=== PATIENT | female | born 1980 | race Caucasian/White ===

== ENCOUNTER 2024-04-21 09:13 | Inpatient (IN) ==
--- NOTE | 2024-03-17 10:51 | PAT Medication Instructions ---
Medication Instructions Date of Service March 17, 2024 Home Medications duloxetine 30 mg capsule,delayed release 30 mg PO QAM ibuprofen 200 mg tablet 200 mg PO Q6H PRN prn pregabalin 75 mg capsule (Lyrica) 75 mg PO BID ASK your surgeon for instructions ibuprofen 200 mg tablet 200 mg PO Q6H PRN prn Take morning of surgery With a small sip of water, OTHERWISE NOTHING TO EAT OR DRINK AFTER MIDNIGHT: duloxetine 30 mg capsule,delayed release 30 mg PO QAM pregabalin 75 mg capsule (Lyrica) 75 mg PO BID Take evening before surgery pregabalin 75 mg capsule (Lyrica) 75 mg PO BID Other Notes If you have any questions please call us at [phone] or [phone] or [phone] or [phone]
--- NOTE | 2024-03-22 11:27 | Anesthesiology Consultation ---
Date of Service March 22, 2024 Assessment & Plan (1) Encounter for pre-operative examination: - awaiting surgeon ordered PCP pre-operative evaluation 04/05/24 (Dr. Geraldine Leiva). Chart Review Chart Review: Pending: Refer to Additional Notes / Consult section and Patient seen in Pre Admission Testing Teaching & Discussion Pre-Anesthesia Teaching/Discussion Notes: Instructed NPO after midnight before surgery, except medications with 15 cc of water. Medication instructions provided according to the PAT guidelines. History Surgery Operation Date: 04/21/24 07:45 Proposed Procedures p L4-L5 Decompression and Fusion with Spinal Cord Monitoring - Femi Blanco, DO Height/Weight Height: 5 ft 4 in Weight: 73.3 kg Allergies Allergy/AdvReac Type Severity Reaction Status Date / Time No Known Allergies Allergy Unverified 03/17/24 10:16 Medications Home Medications Medication Instructions Recorded Confirmed Last Taken duloxetine 30 mg capsule,delayed 30 mg PO QAM 03/17/24 03/17/24 Unknown release ibuprofen 200 mg tablet 200 mg PO Q6H PRN prn 03/17/24 03/17/24 Unknown pregabalin 75 mg capsule (Lyrica) 75 mg PO BID 03/17/24 03/17/24 Unknown Past Medical History Medical History History of anesthesia reaction difficulty waking Low back pain Situational stress taking cymbalta due to stress at work Patient denies h/o stroke, seizures, heart attack, heart failure, DM, HTN, blood clots/DVTs or blood transfusions. Exercise / Class Metabolic Activity II 4-5 Yardwork/Stairs/Walk up hill (denies chest discomfort or shortness of breath with one flight of stairs) Past Surgical History Surgical History (Updated 03/22/24 @ 11:40 by Brandy West PA-C) History of arthroscopic knee surgery right History of partial hysterectomy History of right oophorectomy History of wisdom tooth extraction Past Anesthesia History No Family Hx of Anesthesia Complications History of PONV History of PONV (had scop patch in past) and Hx of Motion Sickness Social History Smoking Status: Never smoker Do You Dip or Chew Tobacco: No Hx Alcohol Use: No Hx Substance Use: No substance use type: does not use Review of Systems Snoring, denies witnessed apneas. Patient denies chest pain, shortness of breath, dyspnea on exertion, reflux, fever, chills, cough, wheezing, or palpitations. Physical Exam Vital Signs Vitals BP 138/96 P 84 TEMP 97.5 SP02 97% on RA RESP 18 Physical Patient resting comfortably in chair in no acute distress, alert and oriented, responding appropriately throughout visit Full cervical extension range of motion without pain TMD 3.5 finger breadths Mallampati Score 3 Dentition: intact, denies chipped or loose teeth, caps/crowns, implants or bridges Lungs: normal respiratory effort. Good air movement, clear throughout to auscultation, no adventitious breath sounds Cardiac: regular rate and rhythm, no murmurs noted Carotid arteries: negative bruit bilat Lab Results Anesthesia Preop Results Results Anesthesia Widget: WBC 9.55 K/ul (4.8-10.8) 03/22/24 Hgb 13.0 g/dl (12.0-16.0) 03/22/24 Hct 39.1 % (37.0-47.0) 03/22/24 Plt 357 K/uL (130-400) 03/22/24 Na 139 mmol/L (136-145) 03/22/24 K 3.5 mmol/L (3.5-5.1) 03/22/24 Cl 105 mmol/L (98-107) 03/22/24 CO2 29 mmol/L (21-32) 03/22/24 BUN 14 mg/dl (6-23) 03/22/24 Creat 0.79 mg/dl (0.6-1.2) 03/22/24 Glucose Level 108 mg/dl (70-99(Fasting)) H 03/22/24 PT 10.1 Seconds (9.0-12.0) 03/22/24 PTT 27 Seconds (21-31) 03/22/24 INR 0.9 (0.9-1.1) 03/22/24 Urine Color Yellow 03/22/24 Urine Appearance Clear (Clear) 03/22/24 Urine pH 6.5 (4.5-7.5) 03/22/24 Urine Specific [place] 1.005 (1.000-1.030) 03/22/24 Urine Protein Negative (Negative) 03/22/24 Urine Glucose (UA) Negative (Negative) 03/22/24 Urine Ketones Negative (Negative) 03/22/24 Urine Blood Negative (Negative) 03/22/24 Urine Nitrite Negative (Negative) 03/22/24 Urine Bilirubin Negative (Negative) 03/22/24 Urine Urobilinogen Negative (Negative) 03/22/24 Urine Leukocyte Esterase Negative (Negative) 03/22/24 Blood Type A Positive 03/22/24 Antibody Screen NEGATIVE 03/22/24 Testing Electrocardiogram Date: 03/22/24 NSR, rate 80 bpm Chest X-Ray Date: 03/22/24 No acute cardiopulmonary findings.
[~2024-04-21 09:13] MED LIST: DEXAMETHASONE SOD INJ 4 MG/ML VIAL ONE; GLYCOPYRROLATE 0.2 MG/ML VIAL ONE; LIDOCAINE 2% 2 ML VIAL/AMP(20MG/ML) INFIL ONE; MIDAZOLAM HCL 1 MG/ML 2ML VIAL ONE; ONDANSETRON INJ 2 MG/ML 2 ML VIAL ONE; PROPOFOL IV EMULSION 10 MG/ML 20 ML VIAL IV ONE; ROCURONIUM BROMIDE 10 MG/ML 5 ML VIAL IV ONE; SUGAMMADEX SODIUM 200 MG/2 ML VIAL IV ONE; fentaNYL citrate PF 100 MCG/2 ML VIAL ONE
[2024-04-21] MEDS ORDERED: ePHEDrine sulfate 50 MG/ML AMP IV PRN (09:41)
[2024-04-21] MEDS ORDERED: ONDANSETRON INJ 2 MG/ML 2 ML VIAL IV PRN ×2 (09:41→15:03)
[2024-04-21] MEDS ORDERED: DEXAMETHASONE SOD INJ 4 MG/ML VIAL IV PRN (09:41)
[2024-04-21] MEDS ORDERED: ATROPINE SULFATE 0.1 MG/ML 10ML SYR IV PRN (09:41)
--- NOTE | 2024-04-21 09:44 | Anesthesiology Consultation ---
Date of Service April 21, 2024 Assessment & Plan Chart Review Chart Review: Acceptable Risk for Surgery Consults Requested none ASA ASA2 Proposed Anesthesia Anesthesia Type: General History Surgery Operation Date: 04/21/24 10:45 Proposed Procedures p L4-L5 Decompression and Fusion, Spinal Cord Monitoring - Femi Blanco DO Height/Weight Height: 5 ft 4 in Weight: 71.9 kg Allergies Allergy/AdvReac Type Severity Reaction Status Date / Time No Known Allergies Allergy Verified 04/21/24 09:35 Medications Home Medications Medication Instructions Recorded Confirmed Last Taken duloxetine 30 mg capsule,delayed 30 mg PO QAM 03/17/24 04/21/24 04/21/24 07:00 release ibuprofen 200 mg tablet 200 mg PO Q6H PRN prn 03/17/24 04/21/24 04/07/24 07:00 pregabalin 75 mg capsule (Lyrica) 75 mg PO BID 03/17/24 04/21/24 04/07/24 07:00 Active Medications Generic Name Dose Route Start Last Admin Trade Name Freq PRN Reason Stop Dose Admin Acetaminophen 1,000 mg 04/21/24 06:00 04/21/24 09:45 Acetaminophen 500 Mg Tab PO 04/21/24 18:00 1,000 mg PREOP VIRGEN Administration Celecoxib 200 mg 04/21/24 06:00 04/21/24 09:45 Celebrex 200 Mg Cap PO 04/21/24 18:00 200 mg PREOP VIRGEN Administration Gabapentin 900 mg 04/21/24 06:00 04/21/24 09:45 Gabapentin 900 Mg Dose PO 04/21/24 18:00 900 mg PREOP VIRGEN Administration Lactated Ringer's 1,000 mls @ 15 mls/hr 04/21/24 06:00 04/21/24 09:45 Lr IV 04/22/24 05:59 15 mls/hr .Q24H VIRGEN Administration Lactated Ringer's 1,000 mls @ 60 mls/hr 04/21/24 06:00 04/21/24 09:46 Lr IV 04/21/24 22:39 Not Given .[id number] VIRGEN NPO Date Last Intake of Fluids: 04/21/24 Time Last Intake of Fluids: 06:45 Last Intake of Fluids Comment: sip with med Date Last Intake of Solids: 04/20/24 Time Last Intake of Solids: 21:30 Past Medical History Medical History Situational stress taking cymbalta due to stress at work History of anesthesia reaction difficulty waking Low back pain Exercise / Class Metabolic Activity II 4-5 Yardwork/Stairs/Walk up hill Past Surgical History Surgical History History of right oophorectomy History of arthroscopic knee surgery right History of partial hysterectomy History of wisdom tooth extraction Past Anesthesia History No Hx of Anesthesia Complications History of PONV No Hx of PONV Social History Smoking Status: Never smoker Do You Dip or Chew Tobacco: No Hx Alcohol Use: No Hx Substance Use: No substance use type: does not use Review of Systems ROS Unobtainable: All systems reviewed & are unremarkable except as noted in Subjective Physical Exam Constitutional no acute distress ENMT Mouth: no dentition abnormality Thyromental Distance: > or= 3.5 Finger Breadths Mallampati Class: I Neck normal visual inspection Respiratory normal respiratory effort Auscultation: lungs clear to auscultation bilaterally Cardiovascular Rate/Rhythm: regular rate Neurologic moves all extremities Testing Electrocardiogram Date: 03/22/24 NSR, rate 80 bpm Chest X-Ray Date: 03/22/24 No acute cardiopulmonary findings.
[2024-04-21] MEDS: CeleBREX 200 MG CAP PO SCH (09:45)
[2024-04-21] MEDS: ACETAMINOPHEN 500 MG TAB PO SCH (09:45)
[2024-04-21] MEDS: LR 15ML/HR IV SCH (09:45)
[2024-04-21] MEDS: GABAPENTIN 900 MG DOSE PO SCH (09:45)
[2024-04-21] MEDS: LR 60ML/HR IV SCH (09:46)
--- NOTE | 2024-04-21 11:00 | History & Physical Bridge Note ---
Date of Service April 21, 2024 History & Physical Bridge Note I have examined the patient, reviewed the History & Physical and in the interval since the performance of the History & Physical I have noted the following changes of clinical significance: no changes noted
--- NOTE | 2024-04-21 11:01 | History & Physical Report ---
Date of Service April 21, 2024 Assessment & Plan (1) Neurogenic claudication due to lumbar spinal stenosis: Plan: L4-L5 decompression and fusion History of Present Illness Chief Complaint: Back and leg pain Primary Care Provider: Geraldine Leiva This is a 43-year-old female presents with chronic persistent back and leg pain after failing course of nonoperative care is here for surgical invention. Allergies Allergy/AdvReac Type Severity Reaction Status Date / Time No Known Allergies Allergy Verified 04/21/24 09:35 Home Medications Medication Instructions Recorded Confirmed Type duloxetine 30 mg capsule,delayed 30 mg PO QAM 03/17/24 04/21/24 History release ibuprofen 200 mg tablet 200 mg PO Q6H PRN prn 03/17/24 04/21/24 History pregabalin 75 mg capsule (Lyrica) 75 mg PO BID 03/17/24 04/21/24 History Past Med/Surg History Problem List (Updated 04/21/24 @ 11:01 by Femi Blanco DO) Neurogenic claudication due to lumbar spinal stenosis Medical History (Updated 04/21/24 @ 11:01 by Femi Blanco DO) Situational stress taking cymbalta due to stress at work History of anesthesia reaction difficulty waking Low back pain Surgical History History of right oophorectomy History of arthroscopic knee surgery right History of partial hysterectomy History of wisdom tooth extraction Social History Smoking Status: Never smoker Second Hand Exposure: No; Do You Dip or Chew Tobacco: No; Tobacco Cessation Education Requested by Patient: No Hx Alcohol Use: No Hx Substance Use: No Preferred Language: Sami Management Sme Required: No Beliefs That Will Affect Care: None Current Living Situation: Family Other Information That Helps Us Care for You: No Feels Safe at Home: Yes Safety Concerns: Feels Safe At This Time Assistive Devices: None Physical Exam Physical Exam: Patient is alert and oriented Heart regular rhythm lungs clear Results & Data Results & Data Vital Signs (Past 12 Hours) Vital Signs Temp Pulse Resp BP Pulse Ox O2 Del Method 04/21/24 09:50 36.8 C 80 20 139/86 100 Room Air
[2024-04-21] MEDS ORDERED: fentaNYL citrate PF 100 MCG/2 ML VIAL ONE (11:54)
[2024-04-21] MEDS: BUPIVACAINE/EPINEPHRINE 0.25% 1:200,000 30 ML VIAL ONE (12:16)
[2024-04-21] MEDS ORDERED: PHENYLEPHRINE 100MCG/ML 5ML SYR ONE (13:04)
--- NOTE | 2024-04-21 13:08 | Operative Report ---
Post Operative Report Pre & Post Diagnosis Operation Date: 04/21/24 10:45 Pre-Op Diagnosis: #1 lumbar spondylosis lumbar spinal stenosis with spondylolisthesis and radiculopathy Post-Op Diagnosis: Same I identified the patient and participated in the time-out.: Yes Procedure Operation Date: 04/21/24 10:45 Actual Procedures #1 lumbar decompression with bilateral medial facetectomies and foraminotomies L4-L5. #2 posterior spinal fusion L4-5 #3 placement posterior instrumentation L4-5 per #4 interbody fusion L4-5 #5 placement of Spira 13 x 26 mm x 2 at L4-5. #6 placement locally harvested morselized autograft posterior gutters. #7 placement infuse collagen sponge combined with Koros in the posterior lateral gutters and os design bone graft interbody space. #8 application of versa wrap of the exposed dura. Surgeon Femi Blanco DO Applications Coordinator Steve Carvalho Estimated Blood Loss 50 Findings Consistent with Post-Op Diagnosis Specimens None Indications This is a 43-year-old female who presents above-mentioned diagnosis after failing course of nonoperative care is here for surgical invention. Description of Procedure Patient was met with identified informed consent obtained. Patient was then taken to the operative suite underwent ablation placed in a prone position on the Antonio table top Ronan frame. All bony promises well-padded eyes inspected to ensure no external pressure placed upon them. This point the lumbar spine was prepped and draped in normal sterile fashion. Sharp dissection with the assistance of Bovie cautery was formed down to and exposing the lamina transverse processes of L4-L5. From caudal to cephalad fashion complete laminectomy of L4 was performed including bilateral medial facetectomies and foraminotomies addressing severe subarticular and foraminal stenosis. Pedicle screws then placed at L4-5 bilaterally with assistance of fluoroscopy and appropriate sized lexi placed. By way of a trans foraminal approach on the right a discectomy of L4-5 was performed endplates guarded to subcortical bleeding bone and a 13 x 26 mm Spira cage filled with os design bone graft tapped in position. Then proceeded to the left transforaminal region at L4-5. Again discectomy performed endplates guided to subcortical bleeding bone and a second 13 x 26 mm Spira cage filled with Oxyzyme bone graft tapped in position. The rods then compressed locked in final position bilaterally. The transverse processes of L4-L5 burred to subcortical bleeding bone. Infuse collagen sponge, with Koros and local autograft placed in posterior lateral gutters. Versa wrap placed over the exposed dura. 15 round OSMIN drain inserted. The incision was then closed with 1 Vicryl the fascia 2-0 Vicryl subcutaneously and 4 Monocryl for final skin closure. Steri-Strips and sterile dressing placed. Patient waken taken PACU stable condition. Please note spinal cord monitoring was utilized at the procedure no changes noted. Steve Carvalho was present at the entire procedure involved the patient positioning complex portion of the surgery and final skin closure. Im ordering 20 grams of Triple [place] Collagen Powder (OfferWire [id number]) to treat an incision wound that was caused by a spine procedure. The incision is approximately 2 cm(W) x 4 cm(L) into the joint (D) in size and is a full thickness wound. Triple [place] collagen comes in 1 gram packets so 20 packets were ordered. Given the size of the wound, with light to moderate exudate I chose to order a 20 day supply. The patient will be provided instructions for proper application of the collagen wound kit. The patient will be asked to apply the collagen powder daily and then cover it with sterile dressings dispensed. Collagen was selected as I expect the collagen to attract monocytes and fibroblasts, act as a sacrificial substrate for MMPs, and ultimately proved a matrix for tissue and vessel growth. The collagen will act as a primary dressing in this scenario. It is medically necessary for proper healing of these wounds to improve bioavailability and contact with each wound surface, this is also to help prevent infection of wounds and promote healing ultimately leading to a better healing outcome and limit the risk of infection. I attest to the content of the Intraoperative Record and any orders documented therein. Any exceptions are noted below.
--- NOTE | 2024-04-21 13:28 | Fluoroscopy Report ---
FL lumbar spine 2-3V CLINICAL HISTORY: L4-L5 DECOMPRESSION AND FUSION COMPARISON STUDY: None FLUOROSCOPY TIME: 13.1 seconds FLUOROSCOPY IMAGES: 2 EXPOSURE DOSE: 11.17 mGy FINDINGS: Posterior interbody lexi and screw fusion with discectomy at L4-L5. No unexpected opaque for eign bodies. Note that the images were submitted following completion of the surgery. IMPRESSION: Fluoroscopic assistance as above. ACT 112: Negative or not required by law. Electronically signed by: Kaleb Reynolds M.D. 04/21/2024 1:26 PM
[2024-04-21] MEDS: fentaNYL citrate PF 100 MCG/2 ML VIAL IV PRN (13:35)
[2024-04-21] MEDS: HYDROmorphone INJ 1 MG/ML SYRINGE IV PRN ×2 (14:19→20:31)
--- NOTE | 2024-04-21 15:00 | Anesthesiology Progress Note ---
Date of Service April 21, 2024 Anesthesia Post Procedure Vital Signs Vital Signs: Temp Pulse Pulse Resp BP Pulse Ox O2 Del Method 04/21/24 14:40 76 12 106/69 95 Nasal Cannula 04/21/24 14:30 76 12 118/74 94 Nasal Cannula 04/21/24 14:20 85 14 131/87 96 Nasal Cannula 04/21/24 14:10 36.5 C 98 H 12 130/74 96 Nasal Cannula 04/21/24 14:00 76 14 103/82 95 Oxymask 04/21/24 13:50 80 12 114/79 95 Oxymask 04/21/24 13:40 68 12 118/78 95 Oxymask 04/21/24 13:30 89 16 134/93 95 Oxymask 04/21/24 13:22 36 C L 88 14 121/85 98 Oxymask 04/21/24 09:50 36.8 C 80 20 139/86 100 Room Air O2 Flow Rate 04/21/24 14:40 2 04/21/24 14:30 2 04/21/24 14:20 2 04/21/24 14:10 2 04/21/24 14:00 4 04/21/24 13:50 6 04/21/24 13:40 8 04/21/24 13:30 8 04/21/24 13:22 8 04/21/24 09:50 Pain Intensity Lower Back: Pain Intensity: 5 Transfer of Care Handoff Completed per policy Notes Mental Status: alert / awake / arousable Patient Amnestic to Procedure: Yes Nausea / Vomiting: adequately controlled Pain: adequately controlled Airway Patency, RR, SpO2: stable & adequate BP & HR: stable & adequate Hydration State: stable & adequate Anesthetic Complications: no major complications apparent and Pt Satisfied with anesthetic care
[2024-04-21] MEDS ORDERED: hydrOXYzine HCl 25 MG TAB PO PRN (15:03)
[2024-04-21] MEDS ORDERED: ACETAMINOPHEN 500 MG TAB PO PRN (15:03)
[2024-04-21] MEDS ORDERED: ALUMINUM/MAGNESIUM SUSP 30 ML UDC PO PRN (15:03)
[2024-04-21] MEDS ORDERED: LORazepam 2 MG/1 ML VIAL IV PRN (15:03)
[2024-04-21] MEDS ORDERED: DO NOT ADMINISTER PNEUMOCOCCAL VACCINE PRN (15:03)
[2024-04-21] MEDS ORDERED: ONDANSETRON 4 MG OD TAB PO PRN (15:03)
[2024-04-21] MEDS ORDERED: NALOXONE HCL 0.4 MG/1 ML VIAL/CARP IV PRN (15:03)
[2024-04-21] MEDS ORDERED: SOD PHOSPHATE/SOD BIPHOSPHATE ENEMA 132 ML BTL PR PRN (15:03)
[2024-04-21] MEDS ORDERED: FAMOTIDINE 20 MG TAB PO PRN (15:03)
[2024-04-21] MEDS ORDERED: diphenhydrAMINE Capsule 25 MG CAP PO PRN (15:03)
[2024-04-21] MEDS ORDERED: ACETAMINOPHEN 1,000 MG/100 ML VIAL IV PRN (15:03)
[2024-04-21] MEDS ORDERED: bisacodyL 10 MG SUPP PR PRN (15:03)
[2024-04-21] MEDS ORDERED: METOCLOPRAMIDE HCL INJ 5 MG/ML 2 ML VIAL IV PRN (15:03)
[2024-04-21] MEDS ORDERED: HYDROmorphone INJ 0.5 MG/0.5 ML SYR IV PRN (15:03)
[2024-04-21] MEDS ORDERED: DO NOT ADMINISTER FLU VACCINE PRN (15:03)
[2024-04-21] MEDS ORDERED: LORazepam 0.5 MG TAB PO PRN (15:03)
[2024-04-21] MEDS ORDERED: traMADol HCL 50 MG TABLET PO PRN (15:03)
[2024-04-21] MEDS ORDERED: PROMETHAZINE 12.5 MG/50.5 ML BAG IV PRN (15:03)
[2024-04-21] MEDS: ceFAZolin 2000MG 2,000 MG/15 ML SYR IV SCH ×2 (16:03→20:32)
[2024-04-21] MEDS: ceFAZolin 330 MG/ML 1 GM VIAL ONE (16:04)
[2024-04-21] MEDS: FLOSEAL HEMOSTATIC MATRIX 10ML TOP ONE (16:04)
[2024-04-21] MEDS: oxyCODONE HCL IR 5 MG TAB (IMMEDIATE RELEASE) PO PRN (17:52)
[2024-04-21] MEDS: DOCUSATE SODIUM/SENNA 50/8.6MG TAB PO SCH (20:31)
[2024-04-21] MEDS: PREGABALIN 75 MG CAP PO SCH (20:31)
[2024-04-22] MEDS: POLYETHYLENE (MIRALAX) 17 GM PACK PO SCH (05:33)
[2024-04-22 06:04] LABS: Basophils # (auto) 0.03 K/uL (0.00-0.20); Basophils % (auto) 0.1 %; Hematocrit (blood only) 35.8 % (37.0-47.0); Hemoglobin 11.8 g/dl (12.0-16.0); Immature Granulocytes # (auto) 0.13 K/uL (0.01-0.20); Immature Granulocytes % (auto) 0.6 %; Lymphocytes # (auto) 1.32 K/uL (1.20-3.40); Lymphocytes % (auto) 6.6 %; Mean Corpuscular Hemoglobin 27.9 pg (25.0-34.0); Mean Corpuscular Volume 84.6 fL (80.0-100.0); Mean Platelet Volume 9.6 fL (9.4-12.4); Monocytes # (auto) 0.84 K/uL (0.11-0.59); Monocytes % (auto) 4.2 %; Neutrophils # (auto) 17.79 K/uL (1.40-6.50); Neutrophils % (auto) 88.5 %; Platelet Count 355 K/uL (130-400); RDW Coefficient of Variation 12.8 % (11.5-14.5); RDW Standard Deviation 39.6 fL (36.4-46.3); Red Blood Count 4.23 M/uL (4.20-5.40); White Blood Count 20.11 K/ul (4.8-10.8)
[2024-04-22 06:16] LABS: BUN Creatinine Ratio 14.6 (10-20); Calcium 8.7 mg/dl (8.6-10.3); Creatinine Clr Calc Pharmacy 67.1 ml/min; Potassium 4.6 mmol/L (3.5-5.1)
[2024-04-22] MEDS: dexAMETHasone 6 MG in SYRINGE 0 ML IV SCH (08:10)
[2024-04-22] MEDS: DULoxetine HCL 30 MG CAP PO SCH (08:10)
--- NOTE | 2024-04-22 09:55 | Orthopedic Progress Note ---
Date of Service April 22, 2024 Assessment & Plan (1) Neurogenic claudication due to lumbar spinal stenosis: Plan: At this time we will continue physical therapy monitor her OSMIN output anticipate discharge home next few days. Admission and Anticipated Discharge Date Admission Date: April 21, 2024 Subjective Back pain controlled leg pain improved Physical Exam Physical Exam: Patient is currently in bed. Comfortable. Extra-strength testing. Results & Data Vital Signs (Past 12 Hours) Vital Signs Temp Pulse Resp BP Pulse Ox O2 Del Method 04/22/24 07:13 36.6 C 93 H 16 103/69 94 Room Air 04/22/24 03:12 36.6 C 85 18 110/66 98 Room Air 04/21/24 23:14 36.5 C 77 18 97/62 L 91 Room Air
--- NOTE | 2024-04-23 08:37 | Orthopedic Progress Note ---
Date of Service April 23, 2024 Assessment & Plan (1) Neurogenic claudication due to lumbar spinal stenosis: Plan: Padmini is postoperative day 2 status post lumbar decompression and fusion of L4- 5. She is doing well. Will focus on aggressive bowel regimen today. DVT prophylaxis is in the form of teds and SCDs. Continue with ambulation. Maintain OSMIN drain. Anticipate discharge home tomorrow Admission and Anticipated Discharge Date Admission Date: April 21, 2024 Subjective Padmini is postoperative day 2 status post lumbar decompression and fusion of L4- 5. She has no complaints. Pain is controlled. She is passing flatus but no bowel movement. OSMIN drain output last shift was 45 cc. Yesterday in physical therapy ambulating 200 feet plus the hallways. Review of Systems Review of Systems: All systems reviewed & are unremarkable except as noted in HPI & below Physical Exam Physical Exam: Sitting up in a chair eating breakfast in no acute distress. Alert and oriented x 3 lumbar dressing is clean dry and intact with functioning OSMIN drain calf soft nontender bilaterally strength intact bilateral lower extremities Results & Data Vital Signs (Past 12 Hours) Vital Signs Temp Pulse Resp BP BP Pulse Ox O2 Del Method 04/23/24 07:57 36.8 C 96 H 18 154/90 H 97 Room Air 04/22/24 20:56 36.3 C L 85 16 135/77 94 Room Air
[2024-04-23] MEDS: MAGNESIUM HYDROXIDE SUSP 30 ML UDC PO PRN (17:44)
[2024-04-24 07:09] VITALS: BP 128/82; PULSE 95; RESP 16; TEMP 97.7; O2SAT 95
--- NOTE | 2024-04-24 09:58 | Discharge Summary ---
Date of Service April 24, 2024 Admission HPI Per Admitting Provider This is a 43-year-old female presents with chronic persistent back and leg pain after failing course of nonoperative care is here for surgical invention. Principal Diagnosis Lumbar spinal stenosis with radiculopathy Discharge Data Allergies Allergy/AdvReac Type Severity Reaction Status Date / Time No Known Allergies Allergy Verified 04/21/24 09:35 Procedures Performed Operation Date: 04/21/24 10:45 Actual Procedures p L4-L5 Decompression and Fusion, Spinal Cord Monitoring(Not Applicable) - Femi Blanco DO Ordered Studies 04/21/24 10:45 [place] lumbar spine 2-3V Routine Hospital Course (1) Neurogenic claudication due to lumbar spinal stenosis: Patient with lumbar decompression fusion tolerated as well as taken orthopedic for postoperative postop lesion progressed appropriate. Marked improvement of her leg pain. OSMIN drain decreasing. Extension to testing. Simply discharged home. Discharge orders instructions from the chart for further review. Total Time Total Time Spent Total Time Spent (In Minutes): 20 minutes Discharge Plan Discharge Items Patient Disposition: Home - Self-Care Reason For Visit: Lumbar Disc Disease with Radiculopathy, Spondyloli Discharge Diagnosis: Lumbar spondylolisthesis with radiculopathy Activity: As commented below Non-emergency contact: Primary Care Provider Call non-emergency contact if: you have any medication questions Follow-up/Referrals: Geraldine Leiva M.D. [Primary Care Provider] - Diet: Regular Addtl Attending Provider Instructions: ACTIVITY RECOMMENDATIONS: SELF CARE INSTRUCTIONS AFTER THORACIC/LUMBAR FUSIONS 1. You may walk to your tolerance. It is good exercise for your legs and back. Expect some back and intermittent leg aches and pains. 2. You may perform "counter-top" level activities (make a sandwich, arvind with a project, etc.). 3. No bending or lifting of more than 10 pounds or back twisting of any nature (roll like a log when turning in bed). 4. You may ride in a car for 20-30 minutes at a time. No driving until after your first visit with your doctor. 5. Frequent changes of position and restricting sitting to 30 minutes at a time will help limit the amount of back spasms and stiffness you may experience. 6. You may discontinue the use of ambulatory aids (cane, crutches, etc.) once your strength and confidence allow. 7. You may relief docking master the shower and let water strike your incision when you arrive home at least once daily. Do not take a tub bath, sit in a hot tub or go into a swimming pool until after your first recheck in the office. 8. You may resume previous diet. SPECIAL CARE INSTRUCTIONS: VERY IMPORTANT TO READ AND REVIEW A. Your surgical incision has been closed with a cosmetic suture under the skin that will dissolve in about 6 weeks. In 14 days, you can use a pair of clean scissors and cut the suture that is left outside of the skin at the ends of your incision. 1. The small skin tapes can be removed 7 days after surgery if they have not fallen off by that point. 2. You may keep the wound open to air as much as possible to promote healing after post-op day number 5 unless told otherwise by your doctor. 3. If you think the wound looks like it is becoming infected (redness or worsening drainage) and/or you are experiencing fever, chill or worsening back pain and muscle spasms, contact the office so that we may evaluate you as soon as possible. B. Complications are uncommon, but please contact us if you have any signs or symptoms of: 1. wound infection (fever higher than 102.5 degrees F, redness, separation of wound, drainage, or increasing pain from the incision) 2. blood clots in legs (pain, swelling, redness and warmth in legs) 3. urinary tract infection (fever higher than 102.5 degrees F, burning upon urination or increased frequency of urination) 4. nerve problems (inability to walk on your toes or heels, numbness, loss of bowel or bladder control) 5. any other symptoms that concern you C. Please call the office at if you have any concerns or questions about your operation or recovery. D. No smoking! Smoking drastically decreases the chance of a solid fusion. E. Do not take any anti-inflammatory medications (Indocin, Advil, Motrin, Aspirin, Naprosyn, etc.) as these may inhibit the chance of a solid fusion. Tylenol is okay to take for pain. MANAGING PAIN AFTER SPINAL SURGERY 1. Narcotic medication is intended for short-term use and will be provided for surgical pain. Surgical pain usually lasts for a period of 4-6 weeks. Narcotic medication includes Percocet, Vicodin, Darvocet, Tylenol #3 or Lortab. 2. Longer-term pain is more appropriately treated with non-narcotic medication such as Tylenol ES. 3. Muscle spasm is not appropriately treated with narcotics. Muscle relaxers such as Soma, Flexeril or Skelaxin can be used along with Tylenol ES. 4. Remember that we all live with some "aches and pains". This is not unusual or uncommon after an injury or as we get older. a. Back pain is expected and may include muscle spasms for 4 to 6 weeks after surgery. The pain should gradually improve. If the pain worsens for no apparent reason, please contact the office. b. Intermittent leg pain may also be experienced and should not be concerned about unless it worsens for no apparent reason. If so, please contact the office. 5. We will provide appropriate medication within the normal guidelines of their prescribed use. We will also be very cautious and aware of potential abuse and extended duration of patients' medication needs. a. Pain medications are for your comfort and to assist with sleep and rest so that the tissue can heal. They are not provided in order to return to normal activity and should not be used through the day. To do so or worsening pain at night can result from ongoing tissue damage and development of tolerance to the prescribed medicine. 6. Please allow 2-3 days to process refills. Prescriptions will not be mailed but must be picked up at the office. FOLLOW UP VISIT: Keep your scheduled follow-up appointment. Any questions, please call the office at . Pending Studies at Discharge: No Stand-Alone Forms: My [facility], Smoking Cessation Medications and DC Order Prescriptions: New tramadol 50 mg tablet 50 mg PO Q6H PRN (Reason: pain, moderate) Qty: 30 0RF oxycodone 5 mg tablet 5 mg PO Q6H PRN (Reason: pain) Qty: 30 0RF Continued duloxetine 30 mg Capsule,Delayed Release(Dr/Ec) 30 mg PO QAM pregabalin [Lyrica] 75 mg Capsule 75 mg PO BID Discontinued ibuprofen 200 mg Tablet 200 mg PO Q6H PRN (Reason: prn) Discharge Orders: Discharge Order (Routine); Ordered 04/24/24 Ordered By: Femi Blanco Admission Data Admit Date/Time: 04/21/24 13:11 Attending Provider: Femi Blanco Admit Provider: Femi Blanco Primary Care Provider: Geraldine Leiva
== END 2024-04-24 12:41 | disposition home or self-care (01) | DRG 402 ==
LOC: ASU 09:13 → 3E 13:11